=== PATIENT | female | born 1960 | race Caucasian/White ===

== ENCOUNTER → 2018-09-21 | Outpatient (CLI) | payer BC ==
--- NOTE | 2018-09-24 07:27 | MM ---
Reason for exam: clinical finding. Last mammogram was performed 21 years ago. History: Patient is postmenopausal. Family history of breast cancer in maternal grandmother at age 50. Took hormonal contraceptives for 30 years beginning at age 19. Indicated problem(s): lump or thickening in the right breast. Physical Findings: Nurse Summary: 1.5cm nodule in the right breast at 9 o'clock (nurse mj). MG Diagnostic Mammo w CAD ROSA ISELA Bilateral CC and MLO view(s) were taken. Prior study comparison: September 25, 1997, bilateral diagnostic mammogram. September 05, 1996, bilateral special view mammogram. The breast tissue is heterogeneously dense. This may lower the sensitivity of mammography. Right large posterior upper outer quadrant spiculated mass with heterogeneous calcifications measuring 3.1cm. A couple clustered calcifications at 9 o'clock and 10 o'clock anterior and middle depth respectively. These results were verbally communicated with the patient and result sheet given to the patient on 09/21/18. ASSESSMENT: Incomplete: need additional imaging evaluation, BI-RAD 0 RECOMMENDATION: Ultrasound of the right breast.
--- NOTE | 2018-09-24 07:30 | USB ---
Reason for exam: additional evaluation requested from abnormal screening. History: Patient is postmenopausal. Family history of breast cancer in maternal grandmother at age 50. Took hormonal contraceptives for 30 years beginning at age 19. US Breast RT Right complete breast ultrasound includes all four quadrants, the retroareolar region and axilla. Finding demonstrates a 2.6 x 2.0 x 2.3cm irregular, spiculated, solid, hypoechoic, vascular lesion at 9 o'clock BB and a 0.6cm and 0.7cm oval lymph nodes at the axilla, uniform thru cortex, benign appearance. These results were verbally communicated with the patient and result sheet given to the patient on 09/21/18. ASSESSMENT: Highly suggestive of malignancy, BI-RAD 5 RECOMMENDATION: Surgical consultation and stereotactic core biopsy of the right breast. (2 sites, 9 and 10 o'clock calcifications anterior and middle depth respectively) Called Dr. Moore with mammographic findings and has scheduled an appointment for the patient for 09/28/18 at 9:[address] Renner. Biopsy scheduled for 10/12/18 at 8 o'clock. PRELIMINARY REPORT CALLED AND FAXED TO DR. RENNER ON 09/24/18.
== END | disposition home or self-care (01) ==
LOC: RADMAMWWP 07:41
PROVIDERS: ATTEND Family Medicine
DX: N63.0 Unspecified lump in unspecified breast (principal); R92.8 Other abnormal and inconclusive findings on diagnostic imaging of breast
CPT/HCPCS: 77066

== ENCOUNTER → 2018-09-28 | Outpatient (CLI) | payer BC ==
[2018-09-28 09:34] VITALS: BP 120/78; PULSE 56; RESP 16; TEMP 98.3; BMI 31.6
--- NOTE | 2018-09-28 10:20 | P.GSHP ---
History of Present Illness H&P Date: 09/28/18 Chief Complaint: lump right breast Dinorah is a 58-year-old white female who noted a lump in her right breast in June, approximately 3 and half months ago. The patient states it has increased in size since that time. She subsequently had a bilateral mammogram performed on 7518. This revealed a 3.1 cm spiculated mass in the upper-outer quadrant of the right breast, and some clustered calcifications at the 9 and 10 o'clock position in the right breast as well. An ultrasound was performed which revealed a 2.3 cm irregular spiculated solid lesion at 9:00, and the recommendation was for the patient to undergo stereotactic core biopsy of the right breast at 9 and 10:00. The patient denies any pain with the mass. The patient has no history of any trauma or infection to the breast. The patient has not had a mammogram prior to this for many years. Family History: maternal grandmother: breast cancer late 50's maternal aunt: cancer unsure of the type great grandmother maternal: rectal cancer Hormonal history: Menarche: 14 first at 19, breast fed: no menopause: having hot flashes , LMP at 52 BCP: 30 years hormones: none Past surgical history 1. Cryosurgery of the cervix Medical history: 1. bilateral carpal tunnel 2. depression Social history: Smoke: 1/2 PPD/ for 12 years stopped 1987 Alcohol: Rare Drugs: Marijuana daily, for recreation and depression - Constitutional Comment: hot flashes Constitutional: Denies chills, Denies fever - EENT Eyes: denies blurred vision, denies pain Ears: deny: decreased hearing, tinnitus Ears, nose, mouth and throat: Denies headache, Denies sore throat - Breasts Breasts: bilateral: as per HPI - Cardiovascular Cardiovascular: Denies chest pain, Denies shortness of breath - Respiratory Respiratory: Denies cough, Denies 7 - Gastrointestinal Comment: reflux - Genitourinary (Female) Genitourinary: Denies dysuria, Denies hematuria - Menstruation Menstruation: Reports postmenopausal - Musculoskeletal Comment: arthritis bilateral carpal tunnel - Integumentary Integumentary: Denies pruritus, Denies rash - Neurological Neurological: Denies numbness, Denies weakness - Psychiatric Psychiatric: Reports depression - Endocrine Endocrine: Denies fatigue, Denies weight change - Hematologic/Lymphatic Comment: none - Allergic/Immunologic Allergic/Immunologic: Reports as per HPI Past Medical History History of Any Multi-Drug Resistant Organisms: None Reported Smoking Status: Former smoker Medications and Allergies Home Medications Medication Instructions Recorded Confirmed Type No Known Home Medications 09/28/18 09/28/18 History Allergies Allergy/AdvReac Type Severity Reaction Status Date / Time codeine Allergy Itching Verified 09/28/18 09:34 Surgical - Exam Vital Signs Temp Pulse Resp BP Pulse Ox 98.3 F 56 L 16 120/78 98 09/28/18 09:30 09/28/18 09:30 09/28/18 09:30 09/28/18 09:30 09/28/18 09:30 BMI 31.6 - General well developed, well nourished, no distress - Eyes normal ocular movement - ENT no hearing loss, no congestion - Neck no masses, trachea midline - Respiratory normal respiratory effort, clear to auscultation - Cardiovascular Rhythm: regular Heart Sounds: normal: S1, S2 - Abdomen Abdomen: soft, non tender, no guarding, no rigid, no rebound - Integumentary normal turgor - Neurologic no disoriented, no combative - Musculoskeletal normal gait, normal posture - Psychiatric oriented to time, oriented to person, oriented to place, speech is normal, jesse ry intact breast exam: right breast: Multi-positional exam reveals a approximately 2-1/2 cm lesion in the lateral aspect of the right breast at 9:00. Fibrocystic changes noted otherwise no other dominant masses or nodules of concern Right axilla: No adenopathy of concern Left breast: Multi-positional exam fibrocystic changes no dominant masses or nodules of concern Left axilla: No adenopathy of concern Results Mammogram and ultrasound reports reviewed Assessment and Plan Assessment: Impression: 1. Mammographic abnormality right breast 2. Ultrasound abnormality right breast 3. Palpable mass right breast 4. Family history of cancer . Family history of breast cancer 6. Depression 7. Arthritis 8. Bilateral carpal tunnel Plan: 1. Right breast ultrasound and stereotactic core biopsy 2. Medical management of medical conditions The skin benefits of procedure discussed with the patient and she is scheduled in the near future Cc: Dr. Moore
== END ==
LOC: WWCWWP 08:55
PROVIDERS: ATTEND Surgery
DX: Z53.9 Procedure and treatment not carried out, unspecified reason (principal)

== ENCOUNTER → 2018-10-12 | Day surgery (SDC) | payer BC ==
[2018-10-12 07:20] VITALS: RESP 12
[2018-10-12 10:00] VITALS: BP 121/79; PULSE 67; TEMP 97.8
--- NOTE | 2018-10-12 10:04 | P.PCN ---
Date of Procedure: 10/12/18 Preoperative Diagnosis: Mammographic abnormality of 3 sites in the right breast Postoperative Diagnosis: same Procedure(s) Performed: Stereotactic core biopsy 3 sites in the right breast Anesthesia: local Surgeon: Lidia Renner Estimated Blood Loss (ml): 1 Pathology: other (Breast tissue from 3 sites) Condition: stable Disposition: same day Indications for Procedure: Mammographic abnormality 3 sites right breast Operative Findings: Microcalcifications in biopsy site 1, biopsy site 2, dense tissue biopsy site 3 if this is not diagnostic of malignancy and ultrasound core biopsy needs to be performed Description of Procedure: The patient is a 58-year-old white female with a radiographic abnormality showing 3 sites of concern in the right breast. The patient was recommended to undergo stereotactic core biopsy of 2 sites, with possible ultrasound-guided core biopsy of the highly suspicious 2.6 cm irregular spiculated solid lesion. After review with from radiology it was felt that all 3 could be sampled stereotactically. The risk and benefits of the procedure were discussed with the patient and she wished to proceed. The patient was brought to the sterotactic core biopsy room. She was positione d prone on the stereotactic table. Site 1 which was anterior was identified on a crown wheel assembler film, the area was then targeted. The skin was prepped. 10 mL of 1% lidocaine was used to anesthetize the area of concern. A 9-gauge vacuum- assisted core biopsy needle was driven to the correct coordinates. Pre-and post-fire radiographs were obtained. The needle appeared to be in the correct location. 8 specimens were obtained. Radiograph of the specimen revealed microcalcifications were present. A secure marked top Marker was placed. Site 2 which was posterior was identified on crown wheel assembler films. This was than targeted this area was posterior. The skin was prepped using Betadine. 10 mL of 1% lidocaine was used to anesthetize the area of concern. A 9-gauge vacuum- assisted core biopsy needle was driven to the correct coordinates. Pre-and post-fire films were obtained indicating the needle was in the correct location. 5 core biopsies were obtained, radiograph of the specimen revealed microcal cifications were present. A tri-dominick barbell Marker was placed. The third area of concern was identified as site 3. This was also posterior site, and felt to be highly suspicious. This represented a solid lesion for which ultrasound-guided core biopsy was initially suggested. Secondary to the fact the patient was having stereo biopsy and was felt this could be targeted at the same time it was determined to approach this via stereo biopsy. The scope film was obtained. The area of concern was targeted. 15 cc of One percent lidocaine was used to anesthetize the area of concern. A 9-gauge vacuum-assisted core biopsy needle was driven to the correct coordinates. The needle was fired. 3 samples were obtained from the 12 o'clock position. No microcalcifications were seen in the specimen. This was painful for the patient and therefore further sampling was not obtained. We determined to await results of pathology. A secure marked top. Clip was placed. This appeared to be in the correct location. Plan: 1. Await results of pathology 2. If site 3 is not diagnostic of malignancy patient will require an ultrasound core biopsy. Cc: Dr. Moore
--- NOTE | 2018-10-12 10:47 | MM ---
EXAMINATION TYPE: MG stereo VAD BX addl RT, MG stereo VAD BX addl RT, MG stereo VAD BX RT DATE OF EXAM: 10/12/2018 COMPARISON: 09/21/2018 and diagnostic mammogram of the bilateral breasts. CLINICAL HISTORY: Right upper outer quadrant mass and additional 2 groups of calcifications for which stereotactic guided biopsy was recommended. TECHNIQUE: Stereotactic guided core biopsy of right breast. FINDINGS: The procedure of stereotactic guided core biopsy was explained to the patient. Benefits, alternatives, and risks were discussed. An informed consent was then obtained. Preprocedural timeout was performed. Site A (3 mm group of calcifications of the retroareolar central outer right breast): The shortness pathway for biopsy was chosen. Shortness pathway was lateral to medial approach. I performed the localization, then surgeon, Dr. Ben Alexander performed the remainder of the procedure. A vacuum assisted biopsy gun was used to obtain multiple core samples. Targeted calcifications are identified in specimen mammogram. Post biopsy mammogram shows the Securemark to appear in satisfactory position relative to the targeted area of concern on the preprocedure images. Site B (4 mm group of calcifications of the upper outer quadrant at middle depth): The shortness pathway for biopsy was chosen. Shortness pathway was lateral to medial approach. I performed the localization, then surgeon, Dr. Ben Alexander performed the remainder of the procedure. A vacuum assisted biopsy gun was used to obtain multiple core samples. Targeted calcifications are identified in specimen mammogram. Post biopsy mammogram shows the Trimark to appear in satisfactory position relative to the targeted area of concern on the preprocedure images. Site C (anterior margin of the highly suspicious at least 3.3 cm upper outer quadrant mass at posterior depth: The shortness pathway for biopsy was chosen. Shortness pathway was lateral to medial approach. I performed the localization, then surgeon, Dr. Ben Alexander performed the remainder of the procedure. A vacuum assisted biopsy gun was used to obtain 3 core samples. Targeted calcifications were not in specimen mammogram however limited sample was obtained as the patient described pain with the procedure. Attention on radiologic/pathologic correlation as this is a BI-RADS 5 mass with associated calcifications. Post biopsy mammogram shows the Securemark to appear in satisfactory position relative to the targeted area of concern on the preprocedure images. The patient tolerated the procedure well without any immediate complication. The patient was kept in the radiology department for short stay after the procedure and then discharged home in stable condition. IMPRESSION: SUCCESSFUL, UNCOMPLICATED THREE SITE STEREOTACTIC GUIDED CORE BIOPSY OF A BI- RADS 5 HIGHLY SUSPICIOUS MASS WITH ASSOCIATED CALCIFICATIONS IN THE UPPER OUTER QUADRANT AT POSTERIOR DEPTH, AND INTERMEDIATE TO HIGH SUSPICION FOR MILLIMETERS GROUP OF CALCIFICATIONS AT MIDDLE DEPTH, AND AN INTERMEDIATE SUSPICION A 3 MM GROUP OF CALCIFICATIONS IN THE RETROAREOLAR RIGHT BREAST, FULL PATHOLOGY RESULTS TO FOLLOW. NOTE THAT ONLY LIMITED SAMPLES WERE OBTAINED OF THE HIGHLY SUSPICIOUS MASS DUE TO PATIENT PAIN. Pathology Results: Malignant A. RIGHT ANTERIOR BREAST, SITE 1, NEEDLE CORE BIOPSIES: Low grade DCIS and intraductal papillomatosis with coarse intraductal mineralizations. An appropriately controlled cytokeratin 5/6 stain on blocks A1 and A2 show loss of keratin staining in atypical cells confirmatory of DCIS. B. 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 C. RIGHT BREAST, POSTERIOR SITE 3, BIOPSIES: Intermediate grade infiltrating (grade 2) adenocarcinoma involving two of three needle core biopsy specimen. See Surgical Pathology Cancer Case Summary. ADDENDUM REPORT C. RIGHT BREAST, POSTERIOR SITE 3, BIOPSIES: Moderately differentiated infiltrating (grade 2) adenocaricnoma involving two of three needle core biopsy specimens. ER: Positive, 91-100 % of tumor cell nuclei demonstrates stainign, intensity strong. PgR: Positive, 91 to 100% of tumor cell nuclei demonstrates staining, intensity moderate to strong. HER2/Trisha ([facility]): Indeterminate (2+). Her2 assessment by FISH is pending. Recommendation Surgical consult of the right breast. Definitive surgical treatment. All three sites positive. Total distance of 7.3cm with regards to extent of disease. Not likely a canidate for breast conservation therapy. MTDD
== END ==
LOC: RADMAMWWP 06:51 → EDSTATUS 08:00
PROVIDERS: ATTEND Surgery
DX: C50.411 Malignant neoplasm of upper-outer quadrant of right female breast (principal); Z17.0 Estrogen receptor positive status [ER+]
CPT/HCPCS: 88305; 88342; 88341; 19081; 19082; A4648; J2001

== ENCOUNTER → 2018-10-18 | Outpatient (CLI) | payer BC ==
[2018-10-18 15:42] VITALS: BP 135/79; PULSE 70; RESP 16; TEMP 97.9; BMI 31.8
--- NOTE | 2018-10-18 16:38 | P.PN ---
Subjective Progress Note Date: 10/18/18 Principal diagnosis: Right breast invasive ductal carcinoma, DCIS The patient is a 58-year-old white female who is status post stereotactic core biopsy of 3 areas of concern in the right breast and [id number]. The most posterior area was invasive ductal carcinoma, and the other 2 areas were ductal carcinoma in situ. The radiograph has been reviewed with the radiologist and the disease appears to be multifocal. The patient is a 30 4B bra. I discussed with her the results of the pathology and she is interested in pursuing a mastectomy. Prior to this she will be seen by medical oncology and plastic surgery. The patient has some mild discomfort at the biopsy sites. Objective - Vital Signs Vital signs: Vital Signs Temp 97.9 F 10/18/18 15:39 Pulse 70 10/18/18 15:39 Resp 16 10/18/18 15:39 BP 135/79 10/18/18 15:39 Pulse Ox 98 10/18/18 15:39 Intake & Output 10/17/18 10/18/18 10/18/18 18:59 06:59 18:59 Weight 78.925 kg - Constitutional General appearance: Present: obese - EENT Eyes: Present: EOMI ENT: Present: hearing grossly normal - Neck Neck: Present: normal ROM - Respiratory Respiratory: bilateral: CTA - Cardiovascular Rhythm: regular Heart sounds: normal: S1, S2 - Integumentary Integumentary Comment(s): Right breast biopsy site mild ecchymosis No evidence of infection or hematoma Integumentary: Present: normal turgor Assessment and Plan Assessment: Impression: 1. Right breast invasive ductal carcinoma 2. Right breast DCIS 2 sites 3. History of depression 4. Family history of breast cancer 5. Arthritis 6. Bilateral carpal tunnel The pathology was discussed with the patient and her mother. The patient is going to be seen by medical oncology to receive neoadjuvant chemotherapy would be warranted. Despite this secondary to the multifocal aspect of the disease she is most likely going to undergo a mastectomy with sentinel node biopsy possible axillary node dissection. The patient will also meet with Dr. Aj. We have discussed bilateral breast MRI and we will determine if insurance will cover this. We've also discussed possible genetic testing she will discuss this with medical oncology. Her case will be presented at multidisciplinary tumor board. Plan: 1. Case presentation at tumor board 2. Possible bilateral breast MRI 3. Preoperative appointment with medical oncology 4. apointment with Dr. Aj Cc: Dr. Moore
== END | disposition home or self-care (01) ==
LOC: WWCWWP 15:10
PROVIDERS: ATTEND Surgery
DX: Z53.9 Procedure and treatment not carried out, unspecified reason (principal)